=== PATIENT | male | born 1960 | race Caucasian/White ===

== ENCOUNTER 2017-09-20 13:52 | Outpatient (CLI) | payer MEDICARE | END 2017-09-20 23:59 | disposition home or self-care (01) | LOC: CARD DIAG 13:52 | PROVIDERS: ATTEND Internal Medicine Cardiovascular Disease | DX: I08.3 Combined rheumatic disorders of mitral, aortic and tricuspid valves (principal); I50.9 Heart failure, unspecified | CPT/HCPCS: 93306 ==

== ENCOUNTER 2017-12-01 06:07 | Day surgery (SDC) | payer MEDICARE ==
[2017-11-30 12:00] LABS: BASOPHILS # (AUTO) 0.1 X10'3 (0-0.2); BASOPHILS % (AUTO) 0.9 % (0-1); EOSINOPHILS # (AUTO) 0.4 X10'3 (0-0.9); EOSINOPHILS % (AUTO) 4.6 % (0-6); HEMATOCRIT 45.3 % (42.0-52.0); HEMOGLOBIN 15.2 g/dl (14.0-17.9); LYMPHOCYTES # (AUTO) 1.4 X10'3 (1.1-4.8); LYMPHOCYTES % (AUTO) 16.8 % (21-51); MEAN CORPUSCULAR HGB CONC 33.6 % (33.0-36.5); MEAN CORPUSCULAR VOLUME 83.3 FL (78-98); MEAN PLATELET VOLUME 9.6 FL (7.4-10.4); MONOCYTES # (AUTO) 0.9 X10'3 (0-0.9); MONOCYTES % (AUTO) 11.6 % (2-12); NEUTROPHILS # (AUTO) 5.4 X10'3 (1.8-7.7); NEUTROPHILS % (AUTO) 66.1 % (42-75); PLATELET COUNT 227 X10'3 (140-440); RED BLOOD COUNT 5.44 X10'6 (4.70-6.10); RED CELL DISTRIBUTION WIDTH 19.9 % (11.5-14.5); WHITE BLOOD COUNT 8.1 X10'3 (4.5-11.0)
[2017-11-30 12:10] LABS: ALBUMIN 3.4 G/DL (3.4-5.0); ANION GAP 11 (8-16); BLOOD UREA NITROGEN 28 MG/DL (7-18); BUN/CREATININE RATIO 28.3 (5.4-32.0); CALCIUM 9.5 MG/DL (8.5-10.1); CHLORIDE 101 MMOL/L (99-107); CREATININE 0.99 MG/DL (0.60-1.10); GLUCOSE 97 MG/DL (70-104); POTASSIUM 3.5 MMOL/L (3.5-5.1); SODIUM 139 MMOL/L (135-145); TOTAL CARBON DIOXIDE 26.8 MMOL/L (24-32); eGFR 78 ML/MIN
[2017-11-30 12:11] LABS: INR 1.1 INR; PARTIAL THROMBOPLASTIN TIME 27 SECONDS (22-32)
[2017-12-01] VITALS (13 sets, daily range): BP systolic 85–121; BP diastolic 48–84
[~2017-12-01] VITALS: Ht 185.4 cm; Wt 92.5 kg
[2017-12-01] MEDS ORDERED: diphenhydrAMINE 25mg capsule PO PRN (06:30)
[2017-12-01] MEDS ORDERED: LORazepam 0.5 MG tablet PO PRN (06:30)
[2017-12-01] MEDS ORDERED: FURO80TA3 PO (06:37)
[2017-12-01] MEDS ORDERED: SPIR25TA3 PO (06:37)
[2017-12-01] MEDS ORDERED: NITR0.4T51 SL (06:37)
[2017-12-01] MEDS ORDERED: ASPI81TA52 PO (06:37)
[2017-12-01] MEDS ORDERED: CLOP75TA15 PO (06:37)
[2017-12-01] MEDS: normal saline 1000ml 1,000 ML IV SCH ×2 (07:10→12:04)
[2017-12-01] MEDS ORDERED: heparin 1,000unit/ml 10ml vial 10 ML ONE (07:40)
[2017-12-01] MEDS ORDERED: midazolam 2 mg/2 ml injection ONE (07:40)
[2017-12-01] MEDS ORDERED: LIDOcaine 1%/PF (10mg/ml) 5ml vial ONE (07:40)
[2017-12-01] MEDS ORDERED: fentaNYL/PF 50MCG/1 ML 2ML syringe ONE (07:40)
[2017-12-01] MEDS ORDERED: nitroGLYCERIN-Tridil 50MG/D5W 250 ML IV ONE (07:41)
[2017-12-01] MEDS ORDERED: iohexol 350MG/ML 100ml bottle IV ONE (07:41)
[2017-12-01] MEDS ORDERED: iohexol 350 MG/ML 50ML vial IV ONE (07:41)
[2017-12-01] MEDS ORDERED: furosemide 40mg/4ml inj IV ONE (09:45)
[2017-12-01] MEDS ORDERED: potassium Cl 20 mEq SR tablet PO ONE (09:50)
[2017-12-02 09:45] LABS: ISTAT Hct ART 44 %PCV (42-52); ISTAT O2 SATURATION ARTERIAL 96 % (95-98); ISTAT SOURCE ART
[2017-12-02 09:45] LABS: ISTAT Hct MIX 45 %PCV (42-52); ISTAT O2 SATURATION MIX VENOUS 49 % (60-80); ISTAT SOURCE MIX
== END 2017-12-01 16:15 | disposition home or self-care (01) ==
LOC: SSTAY O 06:07
PROVIDERS: ATTEND Internal Medicine Cardiovascular Disease
DX: I25.10 Atherosclerotic heart disease of native coronary artery without angina pectoris (principal); E78.5 Hyperlipidemia, unspecified; I08.1 Rheumatic disorders of both mitral and tricuspid valves; I11.0 Hypertensive heart disease with heart failure; I50.22 Chronic systolic (congestive) heart failure; I27.20 Pulmonary hypertension, unspecified; F10.21 Alcohol dependence, in remission; K21.9 Gastro-esophageal reflux disease without esophagitis; G47.33 Obstructive sleep apnea (adult) (pediatric); J44.9 Chronic obstructive pulmonary disease, unspecified; Z95.5 Presence of coronary angioplasty implant and graft; Z79.82 Long term (current) use of aspirin; Z86.74 Personal history of sudden cardiac arrest; Z88.0 Allergy status to penicillin; Z87.891 Personal history of nicotine dependence; Z79.899 Other long term (current) drug therapy; Z98.890 Other specified postprocedural states
CPT/HCPCS: 36415; 80048; 82803; 85014; 85025; 85610; 85730; 93005; 93460; 99152; 99153; A6257; C1760; C1769; J1644; J1940; J2001; J2250; J3010; J3490; J7030; Q0163; Q9967; A4620

== ENCOUNTER 2018-02-24 14:43 | Outpatient (CLI) | payer MEDICARE ==
[~2018-02-24 14:43] MED LIST: ASPI81TA52 PO; BUME2TAB3 PO; CLOP75TA15 PO; HYDR12.55 PO; NITR0.4T51 SL; SPIR25TA5 PO
== END 2018-02-24 23:59 | disposition home or self-care (01) ==
LOC: CARD DIAG 14:43
PROVIDERS: ATTEND Internal Medicine Cardiovascular Disease
DX: I08.3 Combined rheumatic disorders of mitral, aortic and tricuspid valves (principal); I50.9 Heart failure, unspecified; Z87.891 Personal history of nicotine dependence
CPT/HCPCS: 93306

== ENCOUNTER 2018-04-25 13:03 | Outpatient (CLI) | payer MEDICARE | END 2018-04-25 23:59 | disposition home or self-care (01) | LOC: CARD DIAG 13:03 | PROVIDERS: ATTEND Internal Medicine Cardiovascular Disease | DX: Z48.812 Encounter for surgical aftercare following surgery on the circulatory system (principal); I08.2 Rheumatic disorders of both aortic and tricuspid valves; I50.9 Heart failure, unspecified; I25.2 Old myocardial infarction; Z95.2 Presence of prosthetic heart valve; Z79.82 Long term (current) use of aspirin; Z87.891 Personal history of nicotine dependence | CPT/HCPCS: 93306 ==

== ENCOUNTER 2019-03-08 07:43 | Day surgery (SDC) | payer MEDICARE ==
[2019-03-06 16:30] LABS: BASOPHILS # (AUTO) 0.1 X10'3 (0-0.2); BASOPHILS % (AUTO) 1.2 % (0-1); EOSINOPHILS # (AUTO) 0.4 X10'3 (0-0.9); EOSINOPHILS % (AUTO) 6.7 % (0-6); HEMATOCRIT 50.3 % (42.0-52.0); LYMPHOCYTES % (AUTO) 18.9 % (21-51); MEAN CORPUSCULAR HEMOGLOBIN 29.2 PG (27.0-31.0); MEAN CORPUSCULAR HGB CONC 33.7 g/dL (33.0-36.5); MEAN CORPUSCULAR VOLUME 86.5 FL (78-98); MEAN PLATELET VOLUME 8.7 FL (7.4-10.4); MONOCYTES # (AUTO) 0.6 X10'3 (0-0.9); MONOCYTES % (AUTO) 10.7 % (2-12); NEUTROPHILS # (AUTO) 3.5 X10'3 (1.8-7.7); NEUTROPHILS % (AUTO) 62.5 % (42-75); PLATELET COUNT 223 X10'3 (140-440); RED BLOOD COUNT 5.82 X10'6 (4.70-6.10); RED CELL DISTRIBUTION WIDTH 15.1 % (11.5-14.5); WHITE BLOOD COUNT 5.5 X10'3 (4.5-11.0)
[2019-03-06 16:34] LABS: ALBUMIN 3.5 G/DL (3.4-5.0); ANION GAP 7 (8-16); BLOOD UREA NITROGEN 16 MG/DL (7-18); BUN/CREATININE RATIO 18.4 (5.4-32.0); CALCIUM 9.2 MG/DL (8.5-10.1); CHLORIDE 105 MMOL/L (99-107); CREATININE 0.87 MG/DL (0.60-1.10); GLUCOSE 107 MG/DL (70-104); SODIUM 141 MMOL/L (135-145); TOTAL CARBON DIOXIDE 28.9 MMOL/L (24-32); eGFR > 90 ML/MIN
[2019-03-06 16:39] LABS: POTASSIUM 4.5 MMOL/L (3.5-5.1)
[~2019-03-08] VITALS: Ht 185.4 cm; Wt 96.2 kg
[2019-03-08] VITALS (10 sets, daily range): BP systolic 110–151; BP diastolic 55–82
[~2019-03-08 07:43] MED LIST changes: -BUME2TAB3 PO; +BUME2TAB7 PO
[2019-03-08] MEDS ORDERED: CARV3.122 PO (08:32)
[2019-03-08] MEDS ORDERED: APIX5TAB3 PO (08:32)
[2019-03-08] MEDS ORDERED: PRAV80TA3 PO (08:32)
[2019-03-08] MEDS ORDERED: normal saline 1000ml 1,000 ML IV SCH (08:35)
[2019-03-08] MEDS ORDERED: MIDAZolam 5mg/ml 2ml vial IV ONE (08:35)
[2019-03-08] MEDS ORDERED: morphine 10mg/ml inj. IV ONE (08:35)
== END 2019-03-08 11:00 | disposition home or self-care (01) ==
LOC: SSTAY O 07:43
PROVIDERS: ATTEND Internal Medicine Cardiovascular Disease
DX: I50.9 Heart failure, unspecified (principal); E78.5 Hyperlipidemia, unspecified; Z86.73 Personal history of transient ischemic attack (TIA), and cerebral infarction without residual deficits; I07.1 Rheumatic tricuspid insufficiency
CPT/HCPCS: 36415; 80048; 85025; 93312; J2250; J2270; J7030

== ENCOUNTER 2021-07-21 12:38 | Outpatient (CLI) | payer MEDICARE ==
[~2021-07-21 12:38] MED LIST changes: +APIX5TAB3 PO; -BUME2TAB7 PO; +CARV3.122 PO; -CLOP75TA15 PO; -HYDR12.55 PO; +PRAV80TA3 PO
== END 2021-07-21 23:59 | disposition home or self-care (01) ==
LOC: CARD DIAG 12:38
PROVIDERS: ATTEND Internal Medicine Cardiovascular Disease
DX: I36.1 Nonrheumatic tricuspid (valve) insufficiency (principal); I50.22 Chronic systolic (congestive) heart failure
CPT/HCPCS: 93306

== ENCOUNTER 2021-12-31 06:01 | Day surgery (SDC) | payer MEDICARE ==
[2021-12-30 16:29] LABS: BASOPHILS # (AUTO) 0.1 X10'3 (0-0.2); BASOPHILS % (AUTO) 1.1 % (0-1); EOSINOPHILS # (AUTO) 0.4 X10'3 (0-0.9); EOSINOPHILS % (AUTO) 6.4 % (0-6); HEMATOCRIT 42.3 % (42.0-52.0); HEMOGLOBIN 14.2 g/dl (14.0-17.9); LYMPHOCYTES # (AUTO) 1.5 X10'3 (1.1-4.8); LYMPHOCYTES % (AUTO) 23.8 % (21-51); MEAN CORPUSCULAR HEMOGLOBIN 29.8 PG (27.0-31.0); MEAN CORPUSCULAR HGB CONC 33.6 g/dL (33.0-36.5); MEAN CORPUSCULAR VOLUME 88.5 FL (78-98); MEAN PLATELET VOLUME 8.3 FL (7.4-10.4); MONOCYTES # (AUTO) 0.7 X10'3 (0-0.9); MONOCYTES % (AUTO) 11.7 % (2-12); NEUTROPHILS # (AUTO) 3.5 X10'3 (1.8-7.7); PLATELET COUNT 198 X10'3 (140-440); RED BLOOD COUNT 4.78 X10'6 (4.70-6.10); RED CELL DISTRIBUTION WIDTH 13.5 % (11.5-14.5); WHITE BLOOD COUNT 6.1 X10'3 (4.5-11.0)
[2021-12-30 16:38] LABS: ALBUMIN 3.2 G/DL (3.4-5.0); ANION GAP 1 (8-16); APTT 26 SECONDS (22-32); BLOOD UREA NITROGEN 13 MG/DL (7-18); BUN/CREATININE RATIO 15.1 (5.4-32.0); CALCIUM 8.4 MG/DL (8.5-10.1); CHLORIDE 111 MMOL/L (99-107); CREATININE 0.86 MG/DL (0.60-1.10); GLUCOSE 107 MG/DL (70-104); POTASSIUM 4.2 MMOL/L (3.5-5.1); SODIUM 142 MMOL/L (135-145); TOTAL CARBON DIOXIDE 29.8 MMOL/L (24-32); eGFR > 90 ML/MIN
[2021-12-31] VITALS (13 sets, daily range): BP systolic 96–108; BP diastolic 50–62
[~2021-12-31] VITALS: Ht 182.9 cm; Wt 81.3 kg
[2021-12-31] MEDS ORDERED: ROSU40TA PO (06:35)
[2021-12-31] MEDS ORDERED: CARV25TA2 PO (06:35)
[2021-12-31] MEDS ORDERED: diphenhydrAMINE 25mg capsule PO PRN (06:40)
[2021-12-31] MEDS ORDERED: LORazepam 0.5 MG tablet PO PRN (06:40)
[2021-12-31] MEDS ORDERED: LIDOcaine/PRILOcaine 5gm cream TP ONE (06:45)
[2021-12-31] MEDS: normal saline 1,000 ML IV SCH ×2 (07:27→11:53)
[2021-12-31] MEDS ORDERED: nitroGLYCERIN-Tridil 50MG/D5W 250 ML IV ONE (07:34)
[2021-12-31] MEDS ORDERED: verapamil 2.5 mg/ml inj IV ONE (07:34)
[2021-12-31] MEDS ORDERED: LIDOcaine 1% 30ml preserv. free vial ONE (07:34)
[2021-12-31] MEDS ORDERED: heparin 1,000unit/ml 10ml vial 10 ML ONE (07:34)
[2021-12-31] MEDS ORDERED: fentaNYL/PF 50MCG/1 ML 2ML syringe ONE (07:34)
[2021-12-31] MEDS ORDERED: midazolam 1 mg/ML 2ml injection ONE ×2 (07:34→08:28)
[2021-12-31] MEDS ORDERED: iohexol 350 MG/1 ML 200ml bottle ONE ×2 (08:10→09:26)
[2021-12-31] MEDS ORDERED: heparin 25,000 UNIT/250ml bag 250 ML IV ONE (09:02)
[2021-12-31] MEDS ORDERED: ondansetron/PF 4mg/2ml inj ONE ×2 (10:00→10:22)
[2021-12-31] MEDS ORDERED: clopidogrel 300mg tablet ONE (10:12)
[2021-12-31 10:39] LABS: ISTAT HGB ART 14.6 g/dl (14.0-18.0); ISTAT Hct ART 43 %PCV (42-52); ISTAT O2 SATURATION ARTERIAL 95 % (95-98); ISTAT SOURCE ART
--- NOTE | 2021-12-31 11:27 | NUR ---
Heparin DC'd per orders. Started NS per new order. Patient resting comfortably, VSS as charted, patient slightly nauseated, received Zofran in brush clearing laborer.
[2021-12-31] MEDS ORDERED: normal saline 1000ml 1,000 ML IV SCH (11:30)
[2021-12-31] MEDS ORDERED: normal saline 500ml IV soln 500 ML IV ONE (11:30)
[2021-12-31 11:40] LABS: ISTAT Hct MIX 43 %PCV (42-52); ISTAT O2 SATURATION MIX VENOUS 65 % (60-80); ISTAT SOURCE BLNK
--- NOTE | 2021-12-31 13:00 | NUR ---
NS order adminstered at 100ml/hr as ordered. Pharmacy changed the order to 150ml/hr post procedure. I changed the admin rate back to 100ml/hr as ordered this am.
--- NOTE | 2021-12-31 15:30 | NUR ---
Pt appears to be comfortable. Watching TV with at bedside. Ate 50% of lunch tray, denies nausea. 150ml oral fluid intake. Pt did void 350ml yellow, clear. Addendum: 12/31/21 at 1555 by Ayana Gandara RN VS stable as charted. Pt denies cp, denies sob. Dressing to right wrist is CD&I, no s/s of bleeding or infection. Will continue to monitor.
--- NOTE | 2021-12-31 15:51 | NUR ---
Contacted . on discharge time, Pt now able to DC at [phone]. New order to reinforce pressure dressing to right wrist.
== END 2021-12-31 17:20 | disposition home or self-care (01) ==
LOC: SSTAY O 06:01
PROVIDERS: ATTEND Internal Medicine Cardiovascular Disease
DX: R94.39 Abnormal result of other cardiovascular function study (principal); I25.10 Atherosclerotic heart disease of native coronary artery without angina pectoris; E78.5 Hyperlipidemia, unspecified; G82.20 Paraplegia, unspecified; I25.5 Ischemic cardiomyopathy; I11.0 Hypertensive heart disease with heart failure; I50.22 Chronic systolic (congestive) heart failure; G47.31 Primary central sleep apnea; J44.9 Chronic obstructive pulmonary disease, unspecified; K21.9 Gastro-esophageal reflux disease without esophagitis; I08.1 Rheumatic disorders of both mitral and tricuspid valves; F12.90 Cannabis use, unspecified, uncomplicated; Z95.2 Presence of prosthetic heart valve; Z95.5 Presence of coronary angioplasty implant and graft; Z79.01 Long term (current) use of anticoagulants; Z79.899 Other long term (current) drug therapy; Z79.82 Long term (current) use of aspirin; Z87.891 Personal history of nicotine dependence; Z86.73 Personal history of transient ischemic attack (TIA), and cerebral infarction without residual deficits; Z98.890 Other specified postprocedural states; Z88.0 Allergy status to penicillin; Z82.49 Family history of ischemic heart disease and other diseases of the circulatory system
CPT/HCPCS: 36415; 76937; 80048; 82803; 85014; 85025; 85347; 85610; 85730; 93005; 93460; 99152; 99153; C1725; C1751; C1769; C1874; C1894; C9600; C9601; J2250; J2405; J3010; J3490; J7030; J7040; Q9967; A4620; A5120; A6258; J1644

== ENCOUNTER 2022-10-30 15:06 | Emergency (ER) | payer MEDICARE, SELFPAY ==
[~2022-10-30] VITALS: Ht 182.9 cm; Wt 83.6 kg
[~2022-10-30 15:06] MED LIST changes: +CARV25TA2 PO; -CARV3.122 PO; -NITR0.4T51 SL; -PRAV80TA3 PO; +ROSU40TA PO
[2022-10-30 17:24] VITALS: BP 116/64
[2022-10-30] MEDS ORDERED: DOXYCYCLINE 100MG CAPSULE PO STA (17:33)
[2022-10-30] MEDS ORDERED: DOXY-1 PO (17:36)
[2022-10-30 17:43] LABS: CLARITY,URINE CLEAR (Clear); COLOR,URINE YELLOW (Yellow); GLUCOSE, URINE NEGATIVE (Neg); KETONES,URINE NEGATIVE (Neg); LEUKOCYTE ESTERASE ,URINE NEGATIVE (Neg); NITRITES, URINE POSITIVE (Neg); OCCULT BLOOD,URINE SMALL (Neg); PH,URINE 5.5 (4.8-8.0); PROTEIN,URINE NEGATIVE (Neg); UROBILINOGEN,URINE 0.2 E.U/dL (0.2-1.0)
[2022-10-30 17:58] LABS: UA COLLECTION TYPE CLN CATCH MIDSTREAM
[2022-10-30 18:00] LABS: BACTERIA,URINE 3+ /HPF (Neg); MUCUS STRANDS FEW /LPF (Neg); SQUAMOUS EPITHELIAL CELL,UR FEW /LPF (FEW)
[2022-10-30 18:01] LABS: YEAST FEW /HPF (NEGATIVE)
== END 2022-10-30 18:32 | disposition home or self-care (01) ==
LOC: ER 15:07
DX: N45.2 Orchitis (principal); I11.0 Hypertensive heart disease with heart failure; Z79.899 Other long term (current) drug therapy; Z79.1 Long term (current) use of non-steroidal anti-inflammatories (NSAID); Z79.2 Long term (current) use of antibiotics
CPT/HCPCS: 76870; 81001; 87077; 87088; 87186; 93976; 99284

== ENCOUNTER 2023-10-06 06:17 | Day surgery (SDC) | payer MEDICARE ==
[2023-10-05 15:10] LABS: BASOPHILS # (AUTO) 0.1 X10'3 (0-0.2); BASOPHILS % (AUTO) 1.4 % (0-1); EOSINOPHILS # (AUTO) 0.3 X10'3 (0-0.9); EOSINOPHILS % (AUTO) 6.1 % (0-6); HEMATOCRIT 46.3 % (42.0-52.0); HEMOGLOBIN 15.8 g/dl (14.0-17.9); LYMPHOCYTES # (AUTO) 1.4 X10'3 (1.1-4.8); LYMPHOCYTES % (AUTO) 26.3 % (21-51); MEAN CORPUSCULAR HEMOGLOBIN 30.6 PG (27.0-31.0); MEAN CORPUSCULAR HGB CONC 34.2 g/dL (33.0-36.5); MEAN CORPUSCULAR VOLUME 89.4 FL (78-98); MEAN PLATELET VOLUME 8.6 FL (7.4-10.4); MONOCYTES # (AUTO) 0.6 X10'3 (0-0.9); MONOCYTES % (AUTO) 11.2 % (2-12); NEUTROPHILS # (AUTO) 2.9 X10'3 (1.8-7.7); PLATELET COUNT 195 X10'3 (140-440); RED BLOOD COUNT 5.18 X10'6 (4.70-6.10); RED CELL DISTRIBUTION WIDTH 13.6 % (11.5-14.5); WHITE BLOOD COUNT 5.3 X10'3 (4.5-11.0)
[2023-10-05 15:19] LABS: ALBUMIN 3.6 G/DL (3.4-5.0); ANION GAP 10 (8-16); BLOOD UREA NITROGEN 18 MG/DL (7-18); BUN/CREATININE RATIO 20.2 (10.0-20.0); CALCIUM 8.5 MG/DL (8.5-10.1); CHLORIDE 105 MMOL/L (99-107); CREATININE 0.89 MG/DL (0.60-1.10); GLUCOSE 88 MG/DL (70-104); POTASSIUM 4.1 MMOL/L (3.5-5.1); SODIUM 138 MMOL/L (135-145); eGFR 87 ML/MIN
[2023-10-05 15:23] LABS: APTT 28 SECONDS (22-32); PROTHROMBIN TIME 10.5 SECONDS (9.0-12.0)
[2023-10-06] VITALS (9 sets, daily range): BP systolic 103–129; BP diastolic 53–71; PULSE 48–67; RESP 15–17; TEMP 97.7; O2SAT 94–97
[~2023-10-06] VITALS: Ht 182.9 cm; Wt 88.6 kg
[2023-10-06] MEDS ORDERED: CLOP75TA34 PO (06:52)
[2023-10-06] MEDS ORDERED: ACET-1025 PO (06:52)
[2023-10-06] MEDS ORDERED: CETI10TA14 PO (06:52)
[2023-10-06] MEDS ORDERED: OMEG100037 PO (06:52)
[2023-10-06] MEDS: diphenhydrAMINE 25mg capsule PO PRN (07:28)
[2023-10-06] MEDS: LORazepam 0.5 MG tablet PO PRN (07:29)
[2023-10-06] MEDS: normal saline 1,000 ML IV SCH (07:29)
[2023-10-06] MEDS ORDERED: verapamil 2.5 mg/ml inj IV ONE (07:32)
[2023-10-06] MEDS ORDERED: fentaNYL/PF 50MCG/1 ML 2ML syringe ONE (07:32)
[2023-10-06] MEDS ORDERED: iohexol 350MG/ML 100ml bottle IV ONE (07:32)
[2023-10-06] MEDS ORDERED: midazolam 1 mg/ML 2ml injection ONE (07:32)
[2023-10-06] MEDS ORDERED: heparin 1,000unit/ml 10ml vial 10 ML ONE (07:32)
[2023-10-06] MEDS ORDERED: iohexol 350 MG/ML 50ML vial IV ONE (07:32)
[2023-10-06] MEDS ORDERED: LIDOcaine 1% (10mg/ml) 2ml vial ONE (07:32)
[2023-10-06] MEDS ORDERED: nitroGLYCERIN 500mcg/5mL D5W 5 ML IV ONE (07:33)
== END 2023-10-06 12:57 | disposition home or self-care (01) ==
LOC: SSTAY O 06:17
PROVIDERS: ATTEND Internal Medicine Cardiovascular Disease
DX: I25.10 Atherosclerotic heart disease of native coronary artery without angina pectoris (principal); I11.0 Hypertensive heart disease with heart failure; I50.9 Heart failure, unspecified; E78.5 Hyperlipidemia, unspecified; G82.20 Paraplegia, unspecified; Z95.2 Presence of prosthetic heart valve; Z95.5 Presence of coronary angioplasty implant and graft; Z79.899 Other long term (current) drug therapy
CPT/HCPCS: 36415; 76937; 80048; 85025; 85610; 85730; 93005; 93458; 99152; 99153; A6258; J1644; J2250; J3010; J3490; J7030; Q0163; Q9967; 96360; A6402; C1725; C1894